=== PATIENT | male | born 1965 | race African-American/Black ===

== ENCOUNTER 2021-02-13 21:35 | Emergency (ER) | payer MEDICARE, MEDICAID, SELFPAY ==
[2021-02-13 21:38] VITALS: BP 154/75; PULSE 85; RESP 12; RESP 16; TEMP 36.6; O2SAT 100; BMI 26.7
--- NOTE | 2021-02-13 22:18 | EDS_ITS ---
HPI HPI - GI History of Present Illness Chief Complaint: Abd Pain Informant: patient Abdominal Pain/Flank Pain Onset: Today Context: Gradual Onset Timing: Continuous Quality: Aching Location: Diffuse Current Severity: Mild Maximum Severity: Mild Worsened by: Nothing Relieved by: Nothing Nausea/Vomiting/Emesis GI Symptom: Negative for Nausea and Vomiting Diarrhea/Melena/Hematochezia GI Symptom: Negative for Diarrhea, Melena and Hematochezia Associated Symptoms Associated Symptoms: Negative for Dysuria, Frequency, Hematuria and Urgency Narrative Narrative: 55-yearOld male history of recent Covid for he was hospitalized at [facility]. He is now in a nursing facility for post Covid symptoms. 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 Patient states he had a prior cholecystectomy and kidney stones. States he has had a constipation no bowel movement today and yesterday. Also having abdominal pain today. Denies nausea or vomiting. No diarrhea. Denies dysuria. Has a history of enlarged prostate and previously had a Garcia catheter. He denies fevers or chills. Prior similar symptoms: No Recent Illness/Hospitalization: Yes PFSH PFS Medical History Asthma History of COVID-19 HLD (hyperlipidemia) HTN (hypertension) Other specified disorders of adrenal gland Primary open angle glaucoma (POAG) of left eye, severe stage Type 2 diabetes mellitus Unspecified urinary incontinence Home Medications albuterol sulfate [Ventolin HFA] 2 puff INHALATION Q6H PRN 02/13/21 [History Last Taken Unknown] atorvastatin 40 mg PO QHS 02/13/21 [History Last Taken Unknown] bimatoprost 1 drp LEFT EYE DAILY 02/13/21 [History Last Taken Unknown] brimonidine 1 drp LEFT EYE BID 02/13/21 [History Last Taken Unknown] brimonidine 1 drp LEFT EYE BID 02/13/21 [History Last Taken Unknown] dorzolamide-timolol 1 drp LEFT EYE BID 02/13/21 [History Last Taken Unknown] insulin glargine [Basaglar KwikPen U-100 Insulin] 22 unit SUBCUT DAILY 02/13/21 [History Last Taken Unknown] latanoprost 1 drp LEFT EYE DAILY 02/13/21 [History Last Taken Unknown] losartan 100 mg PO DAILY 02/13/21 [History Last Taken Unknown] magnesium hydroxide [Milk of Magnesia] 400 mg PO DAILY PRN 02/13/21 [History Last Taken Unknown] metformin 1,000 mg PO BID 02/13/21 [History Last Taken Unknown] ondansetron HCl [Zofran] 4 mg PO Q8H PRN 02/13/21 [History Last Taken Unknown] pantoprazole [Protonix] 20 mg PO DAILY 02/13/21 [History Last Taken Unknown] tamsulosin [Flomax] 0.4 mg PO DAILY 02/13/21 [History Last Taken Unknown] ciprofloxacin HCl [Cipro] 500 mg PO BID 10 Days #20 tab 02/14/21 [Rx Last Taken Unknown] Allergy/AdvReac Type Severity Reaction Status Date / Time acetaminophen [From Vicodin] Allergy Vomiting Verified 02/13/21 21:37 diazepam [From Valium] Allergy Vomiting Verified 02/13/21 21:37 hydrocodone [From Vicodin] Allergy Vomiting Verified 02/13/21 21:37 lorazepam [From Ativan] Allergy Vomiting Verified 02/13/21 21:37 latex AdvReac Hives Verified 02/13/21 21:37 Surgical History History of cholecystectomy Social History Smoking Status: Former smoker ROS ROS ED ROS Narrative Constipation and abdominal pain. Review of Systems ROS Unobtainable: Denies due to encephalopathy Constitutional Constitutional ED: Denies fever(s) ENT ENT ED: Denies ear pain or sore throat Cardiovascular Cardiovascular: Denies chest pain Respiratory/Chest Respiratory/Chest: Denies cough or dyspnea Gastrointestinal Gastrointestinal: Reports abdominal pain and constipation; Denies diarrhea, nausea or vomiting Genitourinary Genitourinary ED: Denies dysuria Musculoskeletal Musculoskeletal: Denies myalgias Integumentary Denies rash Neurologic Neurologic: Denies headache(s) Psychiatric Psychiatric: Denies depression Endocrine Endocrinology: Denies polyuria Hematologic/Lymphatic Hematologic/Lymphatic: Denies easy bruising Allergic/Immunologic Allergic/Immunologic ED: Denies urticaria EXAM Physical Exam Narrative Exam Narrative: Middle-age male no acute distress vital signs stable afebrile. Pulse ox 9% on room air no hypoxia. H EENT exam unremarkable except prosthetic right eye.. Neck nontender. Lungs clear to auscultation. Heart regular rhythm rate about 85 no murmur. Abdomen soft nondistended normal bowel sounds no peritoneal signs but diffuse abdominal tenderness. No hernia or mass. No pulsatile mass. Moving all 4 extremities pitting edema both lower extremities. Neurologically is awake and alert. No focal motor deficits. Const Vital Signs: 02/13/21 21:38 02/14/21 00:44 Temperature 97.8 F Temperature Source Temporal Pulse Rate 85 71 Respiratory Rate 12 18 Blood Pressure 154/75 H 133/77 H Blood Pressure Mean 101 95 Pulse Ox 100 Oxygen Delivery Method Room Air Positive well nourished and well developed; Negative for obese, cachectic, contractures or unkempt General Appearance ED: well developed and NAD; Negative for unkempt, cachectic, contractures or pallor Nutritional Appearance: Negative for cachectic or obese HEENT Reports moist mucous membranes normocephalic and atraumatic; Negative for trauma or tenderness Eyes PERRL and EOMs intact bilaterally Neck no lymphadenopathy, supple and no JVD General: Negative for tenderness Resp normal respiratory effort and clear to auscultation bilaterally Auscultation: Negative for rales, rhonchi or wheezes Cardio regular rate, regular rhythm, S1 normal heart sound, S2 normal heart sound and no murmurs GI non-distended and no masses; Negative for non-tender Inspection: Negative for abdominal distention Auscultation: normoactive bowel sounds; Negative for hyperactive bowel sounds or hypoactive bowel sounds Palpation: soft and tender; Negative for guarding, rigid or rebound tenderness present Back/Spine no CVA tenderness Extremity full ROM General Extremety ED: Yes edema; Negative for tenderness General Extremity: edema Neuro moves all extremities Sensorium / Orientation: alert, oriented to person, oriented to place and oriented to time Motor Exam: strength 5/5 throughout Psych mental status grossly normal Appearance: Negative for unkempt Skin no wounds General Skin Exam: Negative for jaundice or pallor Lesions: no lesions Rashes: no rashes MDM MDM MDM Narrative Medical decision making narrative: 55-year-old male presents with abdominal pain. Pedro Luis has very cloudy urine on the clean-catch. Will be worked up for abdominal pain a CAT scan will be obtained if his creatinine is appropriate for IV contrast. He will be given IV morphine and has Zofran. Review exam patient is doing well at 2:20 AM. We went over his test results. A Garcia catheter be placed. He will be started on Cipro 500 twice daily for 10 days first dose given here. Return to the extended care facility. He will need to follow-up with the urologist. I also called and spoke to the patient's extended care facility from whence he came from [facility] and will be returning. She and I went over his diagnoses and follow-up care with the urologist. Follow-up to ensure his UTI is improving. Lab Data Attestation: I reviewed the patient's lab results. Lab results narrative: CBC White count is 10. Hemoglobin 8.1. No old labs available for comparison. Electrolytes gap of 5 BUN 27 creatinine 1.62. Glucose 225. Liver enzymes unremarkable. Urinalysis is positive for urinary tract infection with 50-100 white cells and 3+ bacteria no nitrates and no red cells. No epithelial cells. Culture will be sent. Labs: Laboratory Results - last 24 hr 02/13/21 02/13/21 02/13/21 22:15 22:26 22:26 WBC 10.3 RBC 2.70 L Hgb 8.1 L Hct 25.5 L MCV 94.4 H MCH 30.0 MCHC 31.8 L RDW Std Deviation 51.0 H RDW Coeff of Denice 15.2 H Plt Count 365 MPV 8.4 Immature Gran % (Auto) 0.600 Neut % (Auto) 83.9 H Lymph % (Auto) 7.3 L Kerr % (Auto) 7.7 Eos % (Auto) 0.3 Baso % (Auto) 0.2 Absolute Neuts (auto) 8.7 H Absolute Lymphs (auto) 0.75 L Nucleated RBC % 0 Sodium 139 Potassium 4.5 Chloride 108 H Carbon Dioxide 26.0 Anion Gap 5 BUN 27 H Creatinine 1.62 H Estim Creat Clear Calc 61.58 Est GFR (MDRD) Af Amer 57 L Est GFR (MDRD) Non-Af 47 L BUN/Creatinine Ratio 16.7 Glucose 225 H Calcium 8.9 Total Bilirubin 1.10 H AST 24 ALT 39 Alkaline Phosphatase 76 Total Protein 7.3 Albumin 2.1 L Globulin 5.2 H Albumin/Globulin Ratio 0.4 L Lipase 49 L Urine Color Yellow Urine Clarity Turbid Urine pH 6.0 Ur Specific [place] 1.015 Urine Protein 100 H Urine Glucose (UA) Normal Urine Ketones Negative Urine Occult Blood 50 H Urine Nitrite Negative Urine Bilirubin Negative Urine Urobilinogen 1 H Ur Leukocyte Esterase 500 H Urine RBC 0-5 SEEN Urine WBC 50-100 SEEN Ur Squamous Epith Cells 0-5 SEEN Urine Bacteria 3+ Urine Mucus 0 SEEN Radiography Diagnostic Testing: Clinical Impression(s) from Imaging Studies Abdomen/Pelvis CT 02/14/21 22:15 IMPRESSION: Dilatation of the renal collecting system and ureters bilaterally without evidence of obstructing stone. The dilatation is probably related to a distended bladder. Mild irregular bladder wall thickening. Recommend urology consult. The prostate gland is not enlarged. Pelvic ascites. Bilateral lower lobe subsegmental atelectasis versus pneumonia. 2 cm left adrenal nodule not characteristic of an adrenal adenoma. Correlate with appropriate hormonal testing. Consider follow-up with cross-sectional imaging, if warranted. Anasarca. Electronically Signed: Will Mccall MD at 1:08 EST , Service support , Discharge Plan Triage Chief Complaint: Abd Pain ED Provider: Ace Bazan Dx/Rx/DC Orders Clinical Impression: Urinary tract infection, Acute urinary retention Instructions: ED Urinary Retention, Male, ED Bladder Infection, Male (Adult) Prescriptions: New ciprofloxacin HCl [Cipro] 500 mg tablet 500 mg PO BID 10 Days Qty: 20 RF: 0 No Action latanoprost 0.005 % Drops 1 drp LEFT EYE DAILY RF: 0 atorvastatin 40 mg Tablet 40 mg PO QHS RF: 0 ondansetron HCl [Zofran] 4 mg Tablet 4 mg PO Q8H PRN (Reason: Nausea) RF: 0 pantoprazole [Protonix] 20 mg Tablet,Delayed Release (Dr/Ec) 20 mg PO DAILY RF: 0 magnesium hydroxide [Milk of Magnesia] 400 mg/5 mL Suspension 400 mg PO DAILY PRN (Reason: Constipation) RF: 0 tamsulosin [Flomax] 0.4 mg Capsule 0.4 mg PO DAILY RF: 0 metformin 1,000 mg Tablet 1,000 mg PO BID RF: 0 brimonidine 0.2 % Drops 1 drp LEFT EYE BID RF: 0 dorzolamide-timolol 22.3-6.8 mg/mL Drops 1 drp LEFT EYE BID RF: 0 albuterol sulfate [Ventolin HFA] 90 mcg/actuation Hfa Aerosol Inhaler 2 puff INHALATION Q6H PRN (Reason: Wheezing) RF: 0 losartan 100 mg Tablet 100 mg PO DAILY RF: 0 brimonidine 0.1 % Drops 1 drp LEFT EYE BID RF: 0 Basaglar KwikPen U-100 Insulin 100 unit/mL (3 mL) Insulin Pen 22 unit subcut DAILY RF: 0 bimatoprost 0.01 % Drops 1 drp LEFT EYE DAILY RF: 0 Referrals: VONDA VYAS [Other] Gordon Stack MD [STAFF PHYSICIAN] - 1 Week Activity Restrictions/Additional Instructions: Patient has urinary tract infection. This will be treated with antibiotics Cipro 500 mg twice a day for 10 days. If he is currently on any other anti biotics please check with your medical staff coordinator or his primary care physician. A Garcia catheter was placed due to him having urinary retention. He will need to follow-up with the urologist to determine if the catheter can come out and if so when. Plenty of fluids and rest. Follow-up with his urologist soon as possible. I referred him to Dr. Sharad Stack a urologist in [place] but if he has one already or if there is one closer your facility that is fine. Disposition Disposition: Home, Self Care
[2021-02-13 22:26] LABS: Color, Urine Yellow (Yellow); Glucose, Dipstick Normal (Normal); Ketone-Dipstick Negative (Negative); Leukocyte Esterase-Dipstick 500 /ul (Negative); Mucous, Urine 0 SEEN /hpf (<or=2+); Nitrite-Dipstick Negative (Negative); Occult Blood-Urine 50 /ul (Negative); Protein-Dipstick 100 mg/dl (Negative); Specific Gravity, Urine 1.015 (1.002-1.030); Urine Bilirubin Dipstick Negative (Negative); Urine Clarity Turbid (Clear); Urine Urobilinogen 1 mg/dl (Normal)
[2021-02-13 22:32] LABS: Absolute Lymphocyte Count 0.75 X10^3/uL (0.83-4.51); Absolute Neutrophil Count 8.7 X10^3/uL (2.0-7.7); Basophil# 0.02 X10^3/uL; Basophil% 0.2 % (0-1); Eosinophil# 0.03 X10^3/uL; Eosinophils% 0.3 % (0-5); Hematocrit 25.5 % (40-54); Hemoglobin 8.1 g/dL (13.0-16.5); Lymphocyte # 0.75 X10^3/ul (0.83-4.51); Lymphocyte % 7.3 % (19-41); Mean Corp Hgb Conc 31.8 g/dL (32-36); Mean Corpuscular Volume 94.4 fL (80-94); Mean Platelet Vol. 8.4 fl (6.2-12.0); Monocyte# 0.79 X10^3/uL; Monocyte% 7.7 % (0-10); NRBC Flagged by Analyzer 0 % (0-5); Neutrophil # 8.66 X10^3/uL (2.7-7.7); Neutrophil % 83.9 % (47-70); Platelet Count 365 K/mm3 (150-450); RBC Distribution Width CV 15.2 % (11.6-14.6); White Blood Count 10.3 K/mm3 (4.4-11.0)
[2021-02-13 22:33] LABS: Bacteria 3+ /hpf (None Seen); Red Blood Cells-Urine 0-5 SEEN /hpf (0-5); Squamous Epithelial Cells - UA 0-5 SEEN /hpf (0-5); White Blood Cells 50-100 SEEN /hpf (0-5)
[2021-02-13] MEDS: Ondansetron 4 MG/2 ML Vial IV (22:44)
[2021-02-13] MEDS: morphine 8 MG/ML Syringe 6 MG IV (22:44)
[2021-02-13 22:49] LABS: ALB/GLOB Ratio 0.4 RATIO (0.9-2.4); AST(SGOT) 24 U/L (15-37); Alanine Aminotransfer ALT/SGPT 39 U/L (16-61); Albumin, Serum 2.1 g/dL (3.2-5.0); Alkaline Phosphatase 76 U/L (45-117); Anion Gap 5 (5-15); BUN 27 mg/dL (7-18); BUN/Creat Ratio 16.7 RATIO (10-20); Calcium,Total 8.9 mg/dL (8.5-10.1); Chloride 108 mmol/L (98-107); Creatinine, Serum 1.62 mg/dL (0.70-1.30); EST Glomerular Filtration Rate 47 mL/min (>60); Est Glom Filt Rate - Afr Amer 57 mL/min (>60); Estimated Creatinine Clearance 61.58 ml/min; Globulin 5.2 g/dL (2.2-4.2); Glucose 225 mg/dL (74-106); Lipase 49 U/L (73-393); Potassium 4.5 mmol/L (3.5-5.1); Protein, Total 7.3 g/dL (6.4-8.2); Sodium Level 139 mmol/L (136-145)
[2021-02-14 00:44] VITALS: BP 133/77; PULSE 71; RESP 18
[2021-02-14] MEDS: Ciprofloxacin 500 MG Tablet PO (02:47)
[2021-02-14] MEDS: Morphine 4 MG/ML Syringe IV (02:47)
[2021-02-14 02:50] VITALS: BP 138/70; PULSE 84; PULSE 85; RESP 17; O2SAT 100; O2SAT 98
--- NOTE | 2021-02-14 22:15 | CT_ITS ---
STUDY: CT ABDOMEN AND PELVIS WITH CONTRAST REASON FOR EXAM: Male, 55 years old. Abdominal pain. RADIATION DOSAGE (If Supplied By Facility): CTDIvol = ( 18.88 ) mGy, DLP = ( 2177.48 ) mGycm TECHNIQUE: Transaxial images were obtained from the dome of the diaphragm to the symphysis pubis without oral contrast. 100 mL Isovue 370 intravenous contrast was administered. Sagittal and coronal images were reconstructed. Individualized dose optimization techniques were used for this CT. COMPARISON: None. FINDINGS: Patchy bilateral lower lobe densities representing subsegmental atelectasis or pneumonia. The visualized portions of the heart are within normal limits. Normal liver. There are surgical clips in the gallbladder fossa consistent with a prior cholecystectomy. Mild intrahepatic biliary ductal dilatation probably related to cholecystectomy. Normal spleen. Normal pancreas. Normal right adrenal gland. 2.0 x 1.6 cm left adrenal nodule attenuation 72 Hounsfield units. Mild dilatation of the renal collecting systems bilaterally as well as both ureters. Bladder is distended. Mild slightly irregular anterior superior bladder wall thickening. The prostate gland is not enlarged. Upper pelvic ascites. Normal visualized stomach. Normal small intestine. Normal colon. There is non-visualization of the appendix. Normal abdominal aorta. Normal inferior vena cava. Normal retroperitoneum. No intra-abdominal free air. Normal abdominal wall. Anasarca Normal osseous structures. CT/Abdomen/Pelvis W IV Cont ONLY IMPRESSION: Dilatation of the renal collecting system and ureters bilaterally without evidence of obstructing stone. The dilatation is probably related to a distended bladder. Mild irregular bladder wall thickening. Recommend urology consult. The prostate gland is not enlarged. Pelvic ascites. Bilateral lower lobe subsegmental atelectasis versus pneumonia. 2 cm left adrenal nodule not characteristic of an adrenal adenoma. Correlate with appropriate hormonal testing. Consider follow-up with cross-sectional imaging, if warranted. Anasarca. Electronically Signed: Will Mccall MD at 1:08 EST , Service support ,
== END 2021-02-14 03:49 ==
PROVIDERS: Emergency Provider Emergency Medicine
DX: N39.0 Urinary tract infection, site not specified (principal); R33.8 Other retention of urine; J45.909 Unspecified asthma, uncomplicated; E11.9 Type 2 diabetes mellitus without complications; E78.5 Hyperlipidemia, unspecified; N40.1 Benign prostatic hyperplasia with lower urinary tract symptoms; I10 Essential (primary) hypertension; Z79.84 Long term (current) use of oral hypoglycemic drugs; Z79.899 Other long term (current) drug therapy; Z87.442 Personal history of urinary calculi; Z87.891 Personal history of nicotine dependence
CPT/HCPCS: 51702; 74177; 80053; 81001; 83690; 85025; 87077; 87086; 87088; 87186; 96374; 96375; 96376; 99285; Q9967; A4216; J2405